=== PATIENT | female | born 1990 ===

== ENCOUNTER 2021-07-14 22:54 | Emergency (ER) | payer OTHER ==
[2021-07-14 23:19] VITALS: BP 127/85
== END 2021-07-15 00:03 | disposition short-term general hospital (02) ==
LOC: EMS 22:58
DX: O26.892 Other specified pregnancy related conditions, second trimester (principal); M54.5 Low back pain; R10.9 Unspecified abdominal pain; Z3A.28 28 weeks gestation of pregnancy
CPT/HCPCS: 99285; Z7502